=== PATIENT | male | born 1975 | race Caucasian/White ===

== ENCOUNTER 2023-07-04 08:02 | Outpatient (CLI) | payer OTHER, SELFPAY | END 2023-07-04 08:03 | disposition home or self-care (01) | LOC: NFLDREF 07-07 06:48 | PROVIDERS: PCP Family Medicine; Referring Provider Family Medicine; Visit Provider Family Medicine | DX: Z00.00 Encounter for general adult medical examination without abnormal findings (principal); Z12.5 Encounter for screening for malignant neoplasm of prostate; Z13.6 Encounter for screening for cardiovascular disorders | CPT/HCPCS: 80061; 84153 ==

== ENCOUNTER 2023-12-15 15:24 | Outpatient (CLI) | payer OTHER, SELFPAY | END 2023-12-15 15:25 | disposition home or self-care (01) | PROVIDERS: PCP Family Medicine; Visit Provider Family Medicine | DX: R10.9 Unspecified abdominal pain (principal) | CPT/HCPCS: 80053 ==

== ENCOUNTER 2023-12-16 08:23 | Outpatient (CLI) | payer OTHER, SELFPAY ==
--- NOTE | 2023-12-16 09:00 | CT_ITS ---
Patient: JAMAL ROTH Facility:?[facility] Patient ID:?[id number] Site Patient ID:?[id number]. Site :?[id number] Study:?CT-Abdomen/Pelvis 84CC ISOVUE 370 AND WATER P-12/16/2023 9:04:36 AM Ordering Physician:?DR. JUNG Final Report: INDICATION: Abdominal pain; evaluate for diverticulitis. COMPARISON: None. TECHNIQUE: CT abdomen and pelvis with intravenous contrast; coronal and sagittal reformats. FINDINGS: No abnormal intra pulmonary nodular densities through the lung bases. No evidence of pleural effusion. Normal size cardiac silhouette without any evidence of pericardial effusion. No focal hepatic or splenic pathology. No pancreatic pathology. Gallbladder is unremarkable. No adrenal pathology. No kidney stones or obstructive uropathy. Retroaortic left renal vein is absent anterior component; normal variant. No CT evidence of diverticulitis or abscess. CT study of the pelvis is unremarkable. IMPRESSION: Negative CT abdomen and pelvis with intravenous contrast. Please note that all CT scans at this facility use dose modulation, iterative reconstruction, and/or weight-based dosing when appropriate to reduce radiation dose to as low as reasonably achievable. Dictated by Sunita Perez MD @ 12/16/2023 12:06:47 PM Signed by:?Sunita Perez MD @12/16/2023 12:06:47 PM (Electronic Signature)
== END 2023-12-16 08:24 | disposition home or self-care (01) ==
LOC: CT 08:24
PROVIDERS: PCP Family Medicine; Visit Provider Family Medicine
DX: R10.9 Unspecified abdominal pain (principal); R19.7 Diarrhea, unspecified
CPT/HCPCS: 74177; 87045; 87046; 87177; 87209; 87427; 87493; 87505; 87798; Q9967

== ENCOUNTER 2023-12-22 13:43 | Outpatient (CLI) | payer OTHER, SELFPAY | END 2023-12-22 13:44 | disposition home or self-care (01) | LOC: LKVREF 13:46 | PROVIDERS: PCP Family Medicine; Visit Provider Family Medicine | DX: R10.9 Unspecified abdominal pain (principal); R19.7 Diarrhea, unspecified | CPT/HCPCS: 86364 ==

== ENCOUNTER 2024-10-22 09:06 | Outpatient (CLI) | payer OTHER, SELFPAY | END 2024-10-22 09:07 | disposition home or self-care (01) | LOC: NFLDREF 10-24 00:56 | PROVIDERS: PCP Family Medicine; Referring Provider Family Medicine; Visit Provider Family Medicine | DX: L40.50 Arthropathic psoriasis, unspecified (principal); R10.9 Unspecified abdominal pain; K58.9 Irritable bowel syndrome, unspecified; J45.909 Unspecified asthma, uncomplicated; D64.9 Anemia, unspecified; F41.9 Anxiety disorder, unspecified; Z12.5 Encounter for screening for malignant neoplasm of prostate | CPT/HCPCS: 80053; 80061; G0103 ==

== ENCOUNTER 2025-08-12 09:13 | Emergency (ER) | payer OTHER, SELFPAY ==
[2025-08-12 09:23] VITALS: BP 122/75; PULSE 73; RESP 16; TEMP 36.2; O2SAT 98; BMI 23.9
--- NOTE | 2025-08-12 11:05 | ED_ITS ---
HPI - General Adult General Time Seen by Provider: 11:05 Date Seen: 08/12/25 Chief complaint: Skin/Abscess/Foreign Body Stated complaint: pain on bottom Time Seen by Provider: 08/12/25 10:48 Source: patient and RN notes reviewed Mode of arrival: ambulatory Limitations: no limitations History of Present Illness HPI narrative: This 50-year-old male is presenting with perianal pain. He states to nursing staff had he has ?fissure on my bottom that is really ticked off?. He notes that this is the 3rd day of pain, it is increasing. He is not noticed any blood with wiping. He has a remote history of being constipated but subsequently states that he has been diagnosed with IBS and it is more loose stools now. He has no abdominal pain, no fevers. He states the fissure was diagnosed about 10 years ago, has had some intermittent issues. Related Data Home Medications ?Medication ?Instructions ?Recorded ?Confirmed ashwagandha root extract PO 07/26/22 10/29/24 calcium 500 mg (as 1 tab PO DAILY 07/26/2210/20 carbonate)-vitamin D3 10 mcg (400 unit) tablet omega-3 fatty acids [Fish Oil] PO 07/26/22 10/29/24 turmeric root extract 500 mg tablet 500 mg PO QDAY 04/0908/12/25 Previous Rx's ?Medication ?Instructions ?Recorded albuterol sulfate 90 mcg/actuation 2 puff inhalation Q ID PRN 10/19/24 aerosol inhaler shortness of breath or wheez ing #8.5 grams calcipotriene 0.005 % scalp 1 applic topical DIRECT ED #180 10/19/24 solution mL clobetasol 0.05 % scalp solution 1 applic topical BID #50 mL 10/19/24 fluoxetine 10 mg capsule 10 - 20 mg (1 - 2 x 10 mg) P O 10/19/24 DAILY #180 caps triamcinolone acetonide 0.1 % 1 applic topical BID #45 4 grams 10/19/24 topical cream hydrocortisone 2.5 % topical cream 1 applic SD BID-QID PRN #30 grams 08/12/25 with perineal applicator (Anusol-HC) hydrocortisone acetate 25 mg 25 mg SD BID #12 ea 08/12 rectal suppository (Anusol-HC) Allergies Allergy/AdvReac Type Severity Reaction Status Date / Time penicillin V Allergy Mild Hives Verified 10/29/24 13:48 Sulfa (Sulfonamide Allergy Rash Verified 10/29/24 13:48 Antibiotics) Review of Systems Narrative: As per HPI. [facility] History IBS (irritable bowel syndrome) ?K58.9 - Irritable bowel syndrome, unspecified (ICD-10) Anemia ?D64.9 - Anemia, unspecified (ICD-10) Family History Other Diabetes Social History Smoking Status: Former smoker How often do you have a drink containing alcohol: 2-3 times a week How often do you have six or more drinks on one occasion: Never AUDIT-C Alcohol total score: 3 Non-prescribed substance use: denies use Exam Const: Vital Signs, click to edit/add: Vital Signs - 24 hr 08/12/25 09:23 Temperature 97.2 F L Pulse Rate [Pulse Oximeter] 73 Respiratory Rate 16 Blood Pressure [Ri ght Upper Arm] 122/75 Pulse Oximetry 98 Oxygen Delivery Me thod Room Air This 50-year-old male is seen in exam room to, lying prone on the bed. He is able to roll over. Sclera clear, speech normal. CV regular rate and rhythm, no murmur. Abdomen is soft, nontender, no rebound or guarding anywhere. Inspection of the anus reveals a enlarged pink to reddish hemorrhoid that is palpably tender but not bleeding right along the 12 o'clock position. There is no purplish discoloration, it is still flash she feeling, not hard or indurated. There is no palpable or visible appearance of any thrombosis. Documenting provider has reviewed patient's vital signs: yes Course Course ED Course: Patient and I discussed that there is no evidence of thrombosis but he definitely has an irritated enlarged hemorrhoid. We discussed topical management and conservative management strategies. He is interested in pursuing corrective treatment, did review with him that he could talk to our general surgeons to see if there is anything to offer him. There is nothing further for me to do here, no evidence of thrombosis. [facility] We did discuss signs and symptoms for return, specifically reviewed symptoms that might happen if this does become thrombosed. Vital Signs Vital signs: Initial Vital Signs Temperature 97.2 F L 08/12/25 09:23 Temperature Source Temporal Artery Scan 08/12/25 09:23 Pulse Rate 73 08/12/25 09:23 Respiratory Rate 16 08/12/25 09:23 Blood Pressure 122/75 08/12/25 09:23 Blood Pressure Mean 90 08/12/25 09:23 Blood Pressure Position Sitting 08/12/25 09:23 Pulse Oximetry 98 08/12/25 09:23 Oxygen Delivery Method Room Air 08/12/25 09:23 Vital Signs Temperature 97.2 F L 08/12/25 09:23 Pulse Rate 73 08/12/25 09:23 Respiratory Rate 16 08/12/25 09:23 Blood Pressure 122/75 08/12/25 09:23 Pulse Oximetry 98 08/12/25 09:23 Oxygen Delivery Method Room Air 08/12/25 09:23 Temperature 97.2 F L 08/12/25 09:23 Pulse Rate 73 08/12/25 09:23 Respiratory Rate 16 08/12/25 09:23 Blood Pressure 122/75 08/12/25 09:23 Pulse Oximetry 98 08/12/25 09:23 Oxygen Delivery Method Room Air 08/12/25 09:23 Discharge Plan Discharge Clinical Impression: Hemorrhoid Qualifiers: Hemorrhoid type: unspecified Qualified Code(s): K64.9 - Unspecified hemorrhoids Patient Disposition: Home, Self-Care Condition: Stable Instructions: Hemorrhoids (ED), Sitz Bath (DC) Additional Instructions: Use tucks pads which have which Nirmala, these are sold [id number]. After stooling, recommend shower or warm bath to help clean. Use cool blow graphite pan drier tender to help air dry. Excessive wiping will irritate the hemorrhoid more. Have written for suppository to use twice a day and then topical cream on the inflamed hemorrhoid. If the hemorrhoid is becoming increasingly painful, not responding to medication, may need re-evaluation to ensure it is not developing a condition called thrombosed hemorrhoid. Otherwise, can follow up in clinic with General surgery to discuss further management. Can contact General surgery through [facility] to get scheduled for a follow-up, . Prescriptions: New hydrocortisone acetate [Anusol-HC] 25 mg suppository 25 mg SD BID Qty: 12 0RF hydrocortisone [Anusol-HC] 2.5 % cream with perineal applicator 1 applic SD BID-QID PRNQty: 30 0RF Rx Instructions: Apply small amount topically to the inflamed area. No Action calcium carbonate-vitamin D3 500 mg-10 mcg (400 unit) tablet 1 tab PO DAILY turmeric root extract 500 mg tablet 500 mg PO QDAY omega-3 fatty acids [Fish Oil] PO ashwagandha root extract PO albuterol sulfate 90 mcg/actuation HFA aerosol inhaler 2 puff inhalation QID PRN (Reason: shortness of breath or wheezing) Qty: 8.5 12RF calcipotriene 0.005 % solution 1 applic topical DIRECTED Qty: 180 3RF Rx Instructions: Apply to involved areas on scalp 3-4 times per week, as needed clobetasol 0.05 % solution 1 applic topical BID Qty: 50 4RF Rx Instructions: APPLY SPARINGLY TO AFFECTED AREA appt needed before future refills fluoxetine 10 mg capsule 10 - 20 mg PO DAILY Qty: 180 3RF Patient Comments: 1-3 tabs per day triamcinolone acetonide 0.1 % cream 1 applic topical BID Qty: 454 1RF Follow Up/Referrals: Carlos Manuel Liang MD [Primary Care Provider, [facility]] Stand Alone Forms: [employer] Info Instructions
== END 2025-08-12 11:36 | disposition home or self-care (01) ==
LOC: ED 11:32
PROVIDERS: Emergency Provider Family Medicine; PCP Family Medicine
DX: K64.4 Residual hemorrhoidal skin tags (principal)
CPT/HCPCS: 99282; 99283

== ENCOUNTER 2025-08-30 15:33 | Outpatient (CLI) | payer OTHER, SELFPAY | END 2025-08-30 15:34 | disposition home or self-care (01) | PROVIDERS: PCP Family Medicine; Visit Provider Family Medicine | DX: R10.9 Unspecified abdominal pain (principal); K61.0 Anal abscess; R19.7 Diarrhea, unspecified | CPT/HCPCS: 80053 ==

== ENCOUNTER 2025-08-31 09:22 | Outpatient (CLI) | payer OTHER, SELFPAY | END 2025-08-31 09:23 | disposition home or self-care (01) | LOC: NFLDREF 09-04 15:37 | PROVIDERS: PCP Family Medicine; Referring Provider Family Medicine; Visit Provider Family Medicine | DX: R19.7 Diarrhea, unspecified (principal); K61.0 Anal abscess | CPT/HCPCS: 87493 ==

== ENCOUNTER 2025-09-03 16:07 | Outpatient (CLI) | payer OTHER, SELFPAY ==
--- NOTE | 2025-09-03 16:30 | CRLHL7_ITS ---
For Patients: As a result of the Century Cures Act, medical imaging exams and procedure reports are released immediately into your electronic medical record. You may view this report before your referring provider. If you have questions, please contact your health care provider. INDICATION: Perirectal abscess, chronic abdominal pain. TECHNIQUE: CT of the abdomen and pelvis acquired with 89 cc Isovue 370 IV contrast. Coronal and sagittal reconstructions. COMPARISON: CT of the abdomen and pelvis 12/16/2023. FINDINGS: Lower chest: Unremarkable. Liver: Normal in size and attenuation. No suspicious masses. Gallbladder and bile ducts: Unremarkable. No biliary dilation. Spleen: Unremarkable. Pancreas: Unremarkable. Adrenal glands: Unremarkable. Kidneys, Ureters, and Bladder: Symmetric enhancement. No hydronephrosis or ureteral dilation. No obstructing urinary calculi. No bladder wall thickening. Reproductive organs: Unremarkable. GI tract/Peritoneum: No small bowel dilation. The colon is predominantly fluid-filled which can be seen with diarrhea. There is wall thickening and mucosal hyperenhancement throughout the descending and sigmoid colon suggesting a nonspecific colitis. No evidence of perirectal or perianal abscess. No inflammatory changes in the perineal soft tissues. Negative appendix. No intraperitoneal free air or fluid. Vasculature: Abdominal aorta is normal in caliber. Mesenteric arteries appear patent. Retroaortic left renal vein. Lymph nodes: No lymphadenopathy. Abdominal Wall: Small fat containing umbilical and bilateral inguinal hernias. Bones: Unremarkable for age. IMPRESSION: 1. Findings compatible with a nonspecific colitis/diarrheal illness. 2. No evidence of perirectal or perianal abscess. Please note that all CT scans at this facility use dose modulation, iterative reconstruction, and/or weight-based dosing when appropriate to reduce radiation dose to as low as reasonably achievable. Dictated by Darline Martinez MD @ 09/04/2025 2:07:16 AM (Electronically Signed)
== END 2025-09-03 16:08 | disposition home or self-care (01) ==
LOC: CT 16:08
PROVIDERS: PCP Family Medicine; Visit Provider Family Medicine
DX: K52.9 Noninfective gastroenteritis and colitis, unspecified (principal); R10.9 Unspecified abdominal pain
CPT/HCPCS: 74177; Q9967